=== PATIENT | female | born 1990 | race Caucasian/White ===

== ENCOUNTER 2019-12-27 20:57 | Emergency (ER) | payer OTHER ==
[~2019-12-27] VITALS: Ht 165.1 cm; Wt 68.2 kg
[~2019-12-27 20:57] MED LIST: DM/P295L2 PO
--- NOTE | 2019-12-27 21:04 | PHYS DOC ---
Past History Past Medical History: No Pertinent History Past Surgical History: Cholecystectomy, Other Alcohol Use: Rarely Drug Use: None Adult General Chief Complaint Chief Complaint: ".. I was helping my mom move.. about 8 pm.. and I was seen a plasma TV and felt something go out in my back... And I had severe pain in his running down my left leg... HPI HPI Patient is a 29 year old female who presents with above hx and complaints severe lumbar sacral and left sciatica. Patient injured back while carrying a plasma TV down the stairs. Patient has had sciatica in the past. Patient denies any history of fever or chills. Patient denies any history of immunosuppression. Patient has been able to urinate and defecate since the injury. Straight leg with on left exacerbates her pain. Pain follows a sciatic nerve through her left hip and to the posterior behind her knee. Patient currently follows at [facility] for care Review of Systems Review of Systems Constitutional: Denies fever or chills [] Eyes: Denies change in visual acuity, redness, or eye pain [] HENT: Denies nasal congestion or sore throat [] Respiratory: Denies cough or shortness of breath [] Cardiovascular: No additional information not addressed in HPI [] GI: Denies abdominal pain, nausea, vomiting, bloody stools or diarrhea [] : Denies dysuria or hematuria [] Musculoskeletal: Complaints of lower back pain and left leg sciatica Integument: Denies rash or skin lesions [] Neurologic: Denies headache, focal weakness or sensory changes [] Endocrine: Denies polyuria or polydipsia [] All other systems were reviewed and found to be within normal limits, except as documented in this note. Family History Family History Noncontributory Current Medications Current Medications See nursing for home meds Allergies Allergies Allergies Coded Allergies Type Severity Reaction Last Updated Verified Penicillins Allergy Intermediate Rash 08/24/15 Yes iodine Allergy Intermediate Rash 08/24/15 Yes latex Allergy Intermediate 08/24/15 Yes Physical Exam Physical Exam Constitutional: Well developed, well nourished, in acute distress, non-toxic appearance. [] HENT: Normocephalic, atraumatic, bilateral external ears normal, oropharynx moist, no oral exudates, nose normal. [] Eyes: PERRLA, EOMI, conjunctiva normal, no discharge. [] Neck: Normal range of motion, no tenderness, supple, no stridor. [] Cardiovascular:Heart rate regular rhythm, no murmur [] Lungs & Thorax: Bilateral breath sounds clear to auscultation [] Abdomen: Bowel sounds normal, soft, no tenderness, no masses, no pulsatile masses. Old surgery scars. No saddle loss appreciated. Patient declined rectal at this time. Skin: Warm, dry, no erythema, no rash. [] Back: Lumbar sacral tenderness on left, no CVA tenderness. [] Extremities: Has tenderness from his sciatic nerve. Left. No other Tenderness, no cyanosis, no clubbing, ROM intact, no edema. [] Neurologic: Alert and oriented X 3, guarded gait on left. Sciatic pain, normal sensory function, no focal deficits noted. []DTRs +2 at patella and Achilles Psychologic: Affect anxious, judgement normal, mood normal. [] EKG EKG [] Radiology/Procedures Radiology/Procedures [][address] [address] IMAGING REPORT Signed PATIENT: JACKIE CHOPRA MACCOUNT: [id number] : 1990 LOCATION: ER AGE: 29 SEX: F EXAM STATUS: REG ER ORD. PHYSICIAN: BRIAN ANDERSON MD REASON: injury, LIFTING BOXES - TODAY PROCEDURE: CT LUMBAR SPINE WO CONTRAST CT LUMBAR SPINE WO CONTRAST Indication: Injury while lifting boxes today Technique: Noncontrast CT imaging was performed of the lumbar spine, multiplanar reconstruction images submitted. One or more of the following individualized dose reduction techniques were utilized for this examination: 1. Automated exposure control 2. Adjustment of the mA and/or kV according to patient size 3. Use of iterative reconstruction technique. Comparison: September 15, 2015 CT abdomen pelvis exam Findings: There is again bilateral L5 spondylolysis, similar minimal grade 1 anterior spondylolisthesis L5-S1. There is likely mild to moderate right and mild left L5-S1 neural foramina compromise. No significant lumbar spinal stenosis is identified on this nonmyelographic exam. Lumbar vertebral body stature is maintained. There is mild L4-5 and L5-S1 degenerative disc disease. There has been cholecystectomy. IMPRESSION: 1. There is again bilateral L5 spondylolysis and very mild grade 1 anterior spondylolisthesis at L5-S1. There is suspected [id number] right and mild left L5-S1 neural foramina compromise. There is mild L5-S1 and L4-5 degenerative disc disease. Electronically signed by: Shayna Do MD (12/27/2019 11:51 PM) [id number] DICTATED AND SIGNED BY: SHAYNA DO MD DATE: 12/27/19 4920 CC: BRIAN ANDERSON MD; PCP,NO ~ Course & Med Decision Making Course & Med Decision Making Pertinent Labs and Imaging studies reviewed. (See chart for details) She'll use ice packs as needed for the next 3 days. No past moist heat after 3 days. Take ibuprofen for pain. Follow-up primary care. May have Vicoprofen up 4 times a day for marked pain. May need further evaluation of impingement on left sciatic nerve by MRI. Must follow-up. 1. Back strain 2. Sciatica on left 3. Mild to Moderate Neural Foraminal impingement on the left L4, L5 , S1 [] Dragon Disclaimer Dragon Disclaimer This electronic medical record was generated, in whole or in part, using a voice recognition dictation system. Departure Departure: Disposition: 01 HOME/RESIDENCE PRIOR TO ADM Condition: STABLE Referrals: PCP,SALOME (PCP) Scripts Hydrocodone/Ibuprofen (HYDROCODONE-IBUPROFEN 7.5-200 ) 1 Each Tablet 1 TAB PO PRN Q6HRS PRN for PAIN, #30 TAB 0 Refills Prov: BRIAN ANDERSON MD 12/28/19 Dragon Disclaimer This chart was dictated in whole or in part using Voice Recognition software in a busy, high-work load, and often noisy Emergency Department environment. It may contain unintended and wholly unrecognized errors or omissions. Dragon Disclaimer This chart was dictated in whole or in part using Voice Recognition software in a busy, high-work load, and often noisy Emergency Department environment. It may contain unintended and wholly unrecognized errors or omissions. BRIAN ANDERSON MD Dec 27, 2019 21:04
[2019-12-27 22:07] LABS: BILIRUBIN,URINE NEG (NEG); CLARITY,URINE CLEAR; COLOR,URINE YELLOW; GLUCOSE,URINE NEG (NEG)
[2019-12-27 22:08] LABS: BACTERIA,URINE 0 /HPF (0-FEW); NITRITE,URINE NEG (NEG); RBC,URINE 0 /HPF (0-2); SQUAMOUS EPITHELIAL CELL,UR OCC /LPF; UROBILINOGEN,URINE 0.2 mg/dL (0.2 mg/dL); WBC,URINE 0 /HPF (0-4)
[2019-12-27 22:09] LABS: AMPHETAMINE/METHAMPHETAMINE NEG (NEG); BARBITURATES NEG (NEG); BENZODIAZEPINES NEG (NEG); CANNABINOIDS POS (NEG); COCAINE NEG (NEG); METHADONE NEG (NEG); OPIATES NEG (NEG); PHENCYCLIDINE NEG (NEG)
[2019-12-27 22:46] VITALS: BP 124/77
[2019-12-27] MEDS ORDERED: MORPHINE SULFATE 10 MG/ML SYRINGE. SQ ONE (23:00)
[2019-12-27] MEDS ORDERED: KETOROLAC 60 MG/2 ML VIAL. IM ONE (23:00)
[2019-12-27] MEDS ORDERED: methylPREDNISolone ACETATE 40 MG/ML VIAL. IM ONE (23:00)
[2019-12-27] MEDS ORDERED: ORPHENADRINE CITRATE 60 MG/2 ML VIAL. IM ONE (23:00)
--- NOTE | 2019-12-27 23:55 | RAD ---
CT LUMBAR SPINE WO CONTRAST Indication: Injury while lifting boxes today Technique: Noncontrast CT imaging was performed of the lumbar spine, multiplanar reconstruction images submitted. One or more of the following individualized dose reduction techniques were utilized for this examination: 1. Automated exposure control 2. Adjustment of the mA and/or kV according to patient size 3. Use of iterative reconstruction technique. Comparison: September 15, 2015 CT abdomen pelvis exam Findings: There is again bilateral L5 spondylolysis, similar minimal grade 1 anterior spondylolisthesis L5-S1. There is likely mild to moderate right and mild left L5-S1 neural foramina compromise. No significant lumbar spinal stenosis is identified on this nonmyelographic exam. Lumbar vertebral body stature is maintained. There is mild L4-5 and L5-S1 degenerative disc disease. There has been cholecystectomy. IMPRESSION: 1. There is again bilateral L5 spondylolysis and very mild grade 1 anterior spondylolisthesis at L5-S1. There is suspected [id number] right and mild left L5-S1 neural foramina compromise. There is mild L5-S1 and L4-5 degenerative disc disease. Electronically signed by: Coleman Gleason MD (12/27/2019 11:51 PM) [id number]
[2019-12-28] MEDS ORDERED: HYDR-1179 PO (00:24)
== END 2019-12-28 01:00 | disposition home or self-care (01) ==
LOC: ER 20:57
DX: S39.012A Strain of muscle, fascia and tendon of lower back, initial encounter (principal); M54.42 Lumbago with sciatica, left side; M25.80 Other specified joint disorders, unspecified joint; Z90.49 Acquired absence of other specified parts of digestive tract; Z88.0 Allergy status to penicillin; Z88.8 Allergy status to other drugs, medicaments and biological substances; W22.8XXA Striking against or struck by other objects, initial encounter; Y93.89 Activity, other specified; Y92.89 Other specified places as the place of occurrence of the external cause; Y99.8 Other external cause status
CPT/HCPCS: 36415; 72131; 80307; 81001; 81025; 96372; 99284; J1030; J1885; J2270

== ENCOUNTER 2020-05-30 20:11 | Emergency (ER) | payer OTHER ==
[~2020-05-30] VITALS: Ht 165.1 cm; Wt 54.0 kg
[~2020-05-30 20:11] MED LIST changes: +HYDR-1179 PO
[2020-05-30 21:05] LABS: BASO # 0.1 x10^3/uL (0.0-0.2); BASO % 1 % (0-3); EOS # 0.1 x10^3/uL (0.0-0.7); EOS % 2 % (0-3); HEMATOCRIT 41.2 % (36.0-47.0); HEMOGLOBIN 13.9 g/dL (12.0-15.5); LYMPH # 2.6 x10^3/uL (1.0-4.8); LYMPH % 37 % (24-48); MEAN CORPUSCULAR HEMOGLOBIN 30 pg (25-35); MEAN CORPUSCULAR HGB CONC 34 g/dL (31-37); MEAN CORPUSCULAR VOLUME 90 fL (79-100); MONO # 0.5 x10^3/uL (0.0-1.1); MONO % 7 % (0-9); NEUT # 3.9 x10^3uL (1.8-7.7); NEUT % 55 % (31-73); PLATELET COUNT 230 x10^3/uL (140-400); RED BLOOD COUNT 4.57 x10^6/uL (3.50-5.40); RED CELL DISTRIBUTION WIDTH 12.5 % (11.5-14.5); WHITE BLOOD COUNT 7.2 x10^3/uL (4.0-11.0)
[2020-05-30 21:07] LABS: CALCIUM 8.9 mg/dL (8.5-10.1); CREATININE 0.9 mg/dL (0.6-1.0); GFR 74.6; POTASSIUM 3.6 mmol/L (3.5-5.1)
[2020-05-30 21:13] LABS: ALBUMIN/GLOBULIN RATIO 1.2 (1.0-1.7); TOTAL BILIRUBIN 0.6 mg/dL (0.2-1.0); TOTAL PROTEIN 7.4 g/dL (6.4-8.2)
--- NOTE | 2020-05-30 21:17 | PHYS DOC ---
Past History Past Medical History: No Pertinent History, UTI Past Surgical History: No Surgical History Alcohol Use: None Drug Use: None General Adult EDM: Chief Complaint: DIZZY/LIGHT HEADED HPI: HPI: 30-year-old female presents with periods of dizziness. She tells me that she has these episodes of feeling lightheaded and like her body is rotating. These happen when she is standing, sitting, or lying down. Sometimes it is with movement sometimes it is when she sitting still. The patient had an unknown viral illness a few months ago where she was sick for over a month. While in that she has been feeling okay. She states normal diet. She does not take any medications. She had blood work by her primary care physician yesterday which was unremarkable including a normal TSH. She denies fever chills. Denies fall or trauma. Review of Systems: Review of Systems: Constitutional: Denies fever or chills Eyes: Denies change in visual acuity HENT: Denies nasal congestion or sore throat Respiratory: Denies cough or shortness of breath Cardiovascular: Denies chest pain or edema GI: Denies abdominal pain, nausea, vomiting, bloody stools or diarrhea : Denies dysuria Musculoskeletal: Denies back pain or joint pain Integument: Denies rash Neurologic: Dizziness. Denies headache, focal weakness or sensory changes Endocrine: Denies polyuria or polydipsia Lymphatic: Denies swollen glands Psychiatric: Denies depression or anxiety Heart Score: Risk Factors: Risk Factors: DM, Current or recent (<one month) smoker, HTN, HLP, family history of CAD, obesity. Risk Scores: Score 0 - 3: 2.5% MACE over next 6 weeks - Discharge Home Score 4 - 6: 20.3% MACE over next 6 weeks - Admit for Clinical Observation Score 7 - 10: 72.7% MACE over next 6 weeks - Early Invasive Strategies Current Medications: Current Meds: Current Medications Medications (Trade) Dose Ordered Sig/Wilmer Start Time Stop Time Status Last Admin Dose Admin Meclizine HCl (Antivert) 25 mg 1X ONCE 05/30/20 21:30 05/30/20 21:31 Sodium Chloride 1,000 ml @ 1,000 mls/hr 1X ONCE 05/30/20 21:30 05/30/20 22:29 Allergies: Allergies: Allergies Coded Allergies Type Severity Reaction Last Updated Verified sulfamethoxazole Allergy Severe 05/30/20 Yes trimethoprim Allergy Severe 05/30/20 Yes Penicillins Allergy Intermediate Rash 08/24/15 Yes iodine Allergy Intermediate Rash 08/24/15 Yes latex Allergy Intermediate 08/24/15 Yes acetaminophen Allergy Unknown 12/27/19 Yes cyclobenzaprine Allergy Unknown 12/27/19 Yes hydrocodone Allergy Unknown 12/27/19 Yes metoclopramide Allergy Unknown 12/27/19 Yes Physical Exam: PE: Constitutional: Well developed, well nourished, no acute distress, non-toxic appearance. [] HENT: Normocephalic, atraumatic, bilateral external ears normal, oropharynx moist, no oral exudates, nose normal. [] Eyes: PERRLA, EOMI, conjunctiva normal, no discharge. [] Neck: Normal range of motion, no tenderness, supple, no stridor. [] Cardiovascular: Heart rate regular rhythm, no murmur [] Lungs & Thorax: Bilateral breath sounds clear to auscultation [] Abdomen: Bowel sounds normal, soft, no tenderness, no masses, no pulsatile masses. [] Skin: Warm, dry, no erythema, no rash. [] Back: No tenderness, no CVA tenderness. [] Extremities: No tenderness, no cyanosis, no clubbing, ROM intact, no edema. [] Neurologic: Alert and oriented X 3, normal motor function, normal sensory function, no focal deficits noted. [] Psychologic: Affect normal, judgement normal, mood normal. [] Current Patient Data: Labs: Laboratory Tests Test 05/30/20 20:30 05/30/20 20:35 Sodium Level 139 mmol/L (136-145) Potassium Level 3.6 mmol/L (3.5-5.1) Chloride Level 103 mmol/L (98-107) Carbon Dioxide Level 28 mmol/L (21-32) Anion Gap 8 (6-14) Blood Urea Nitrogen 14 mg/dL (7-20) Creatinine 0.9 mg/dL (0.6-1.0) Estimated GFR (Cockcroft-Gault) 74.6 BUN/Creatinine Ratio 16 (6-20) Glucose Level 92 mg/dL (70-99) Calcium Level 8.9 mg/dL (8.5-10.1) Total Bilirubin Pending Aspartate Amino Transferase (AST) Pending Alanine Aminotransferase (ALT) Pending Alkaline Phosphatase Pending Total Protein Pending Albumin Pending Albumin/Globulin Ratio Pending White Blood Count 7.2 x10^3/uL (4.0-11.0) Red Blood Count 4.57 x10^6/uL (3.50-5.40) Hemoglobin 13.9 g/dL (12.0-15.5) Hematocrit 41.2 % (36.0-47.0) Mean Corpuscular Volume 90 fL (79-100) Mean Corpuscular Hemoglobin 30 pg (25-35) Mean Corpuscular Hemoglobin Concent 34 g/dL (31-37) Red Cell Distribution Width 12.5 % (11.5-14.5) Platelet Count 230 x10^3/uL (140-400) Neutrophils (%) (Auto) 55 % (31-73) Lymphocytes (%) (Auto) 37 % (24-48) Monocytes (%) (Auto) 7 % (0-9) Eosinophils (%) (Auto) 2 % (0-3) Basophils (%) (Auto) 1 % (0-3) Neutrophils # (Auto) 3.9 x10^3uL (1.8-7.7) Lymphocytes # (Auto) 2.6 x10^3/uL (1.0-4.8) Monocytes # (Auto) 0.5 x10^3/uL (0.0-1.1) Eosinophils # (Auto) 0.1 x10^3/uL (0.0-0.7) Basophils # (Auto) 0.1 x10^3/uL (0.0-0.2) EKG: EKG: Sinus rhythm, rate 54, normal axis, no ST elevations or depressions. [] Radiology/Procedures: Radiology/Procedures: [] Impressions: CHEST AP ONLY Clinical History: Reason: dizzy / Spl. Instructions: / History: Technique: AP view of the chest was obtained at 05/30/2020 8:48 PM. Comparison: None. Findings: The cardiomediastinal silhouette is normal. The pulmonary vasculature is normal. The lungs and pleural margins are clear. Impression: No evidence of an acute cardiopulmonary process. Electronically signed by: Beata Aranda III, MD (05/30/2020 10:18 PM) [facility] DICTATED AND SIGNED BY: BEATA ARANDA III, MD DATE: 05/30/20 [id number] CC: JEFFREY HOLT DO; GABRIELLE REID MD ~ Course & Med Decision Making: Course & Med Decision Making Pertinent Labs and Imaging studies reviewed. (See chart for details) The patient's labs are unremarkable. Her chest x-ray is unremarkable. Her EKG is unremarkable. I have given the patient a liter normal saline and 25 mg of m eclizine. I am not exactly sure what is causing her dizziness. She does not meet admission criteria. I believe she can be discharged to home and follow-up with her primary care physician. She is stable for discharge at this time. [] Dragon Disclaimer: Dragon Disclaimer: This electronic medical record was generated, in whole or in part, using a voice recognition dictation system. Departure Departure: Impression: Primary Impression: Dizziness Disposition: 01 HOME/RESIDENCE PRIOR TO ADM Condition: STABLE Referrals: GABRIELLE REID MD (PCP) Patient Instructions: Dizziness, [id number] Justification of Admission: Justification of Admission: Justification of Admission Dx: N/A JEFFREY HOLT DO May 30, 2020 21:17
[2020-05-30 21:22] LABS: BILIRUBIN,URINE NEG (NEG); CLARITY,URINE CLOUDY; COLOR,URINE YELLOW; GLUCOSE,URINE NEG (NEG)
[2020-05-30 21:23] LABS: AMORPHOUS SEDIMENT,UR PRESENT /HPF; BACTERIA,URINE 0 /HPF (0-FEW); NITRITE,URINE NEG (NEG); RBC,URINE 0 /HPF (0-2); SQUAMOUS EPITHELIAL CELL,UR FEW /LPF; UROBILINOGEN,URINE 0.2 mg/dL (0.2 mg/dL); WBC,URINE 0 /HPF (0-4)
[2020-05-30] MEDS ORDERED: IV NORMAL SALINE 1,000ML 1,000 ML IV ONE (21:30)
[2020-05-30] MEDS ORDERED: MECLIZINE 12.5 MG TABLET. PO ONE (21:30)
--- NOTE | 2020-05-30 21:39 | EKG ---
[address] [address] Test Date: 2020-05-30 Test Time: 21:27:08 Pat Name: JACKIE CHOPRA Department: Room: Gender: F [employer]: : 1990 Requested By: JEFFREY HOLT Order Number: [id number] Reading MD: Measurements Intervals [place] Rate: 54 P: 48 ID: [id number] QRS: 93 QRSD: 90 T: 47 QT: 410 QTc: 390 Interpretive Statements SINUS RHYTHM RIGHTWARD AXIS R-S TRANSITION ZONE IN V LEADS DISPLACED TO THE LEFT OTHERWISE NORMAL ECG RI6.02 No previous ECG available for comparison
[2020-05-30 21:51] LABS: U PREG PATIENT NEGATIVE (NEG)
--- NOTE | 2020-05-30 22:21 | RAD ---
CHEST AP ONLY Clinical History: Reason: dizzy / Spl. Instructions: / History: Technique: AP view of the chest was obtained at 05/30/2020 8:48 PM. Comparison: None. Findings: The cardiomediastinal silhouette is normal. The pulmonary vasculature is normal. The lungs and pleural margins are clear. Impression: No evidence of an acute cardiopulmonary process. Electronically signed by: Cristopher Aranda III, MD (05/30/2020 10:18 PM) [facility]
[2020-05-30 22:45] VITALS: BP 117/81
== END 2020-05-30 22:45 | disposition home or self-care (01) ==
LOC: ER 20:11
DX: R42 Dizziness and giddiness (principal); Z87.440 Personal history of urinary (tract) infections; Z88.2 Allergy status to sulfonamides; Z88.1 Allergy status to other antibiotic agents; Z88.0 Allergy status to penicillin; Z88.8 Allergy status to other drugs, medicaments and biological substances; Z91.040 Latex allergy status
CPT/HCPCS: 36415; 71045; 80053; 81001; 81025; 84484; 85025; 93005; 96360; 99285; J7030; J8597